=== PATIENT | female | born 1990 | race Caucasian/White ===

== ENCOUNTER → 2017-01-05 | Outpatient (CLI) | payer OTHER ==
[2017-01-05 16:44] LABS: BASO % 0.3 %; BASO ABS # 0.03 K/uL (0-0.2); COMPLETE YES; HEMATOCRIT 39.8 % (37-47); IG% 0.2 %; LYMPH % 21.2 %; LYMPH ABS # 1.85 K/uL (1.2-3.4); MEAN CELL VOLUME 84.3 fL (80-100); MEAN CORPUSCULAR HEMOGLOBIN 26.9 pg (25-34); MEAN CORPUSCULAR HGB CONC 31.9 g/dl (32-36); MEAN PLATELET VOLUME 11.4 fL (7.4-10.4); MONO % 11.3 %; PLATELET COUNT 334 K/uL (130-400); RED BLOOD COUNT 4.72 M/uL (4.2-5.4); WHITE BLOOD COUNT 8.71 K/uL (4.8-10.8)
[2017-01-05 17:22] LABS: ALT/SGPT 26 U/L (12-78); AST/SGOT 16 U/L (15-37); BLOOD UREA NITROGEN 8 mg/dl (7-18); BUN/CREATININE RATIO 10.7 (10-20); CALCIUM 8.8 mg/dl (8.5-10.1); CARBON DIOXIDE 24 mmol/L (21-32); CHLORIDE 105 mmol/L (98-107); CREATININE 0.79 mg/dl (0.60-1.20); GLUCOSE 83 mg/dl (70-99); POTASSIUM 3.8 mmol/L (3.5-5.1); SODIUM 138 mmol/L (136-145)
[2017-01-05 17:34] LABS: ALB/GLOB RATIO 0.8 (0.9-2); ALKALINE PHOSPHATASE 88 U/L (45-117)
[2017-01-06 13:19] LABS: ESTIMATED AVERAGE GLUCOSE 108 mg/dl; HA1C FLAG Normal (Normal)
== END | disposition home or self-care (01) ==
LOC: C.LABBC 15:28
PROVIDERS: ATTEND Nurse Practitioner Adult Health
DX: L68.0 Hirsutism (principal); N92.6 Irregular menstruation, unspecified; E66.9 Obesity, unspecified; Z32.01 Encounter for pregnancy test, result positive

== ENCOUNTER → 2017-01-05 | Outpatient (CLI) | payer OTHER | END | disposition home or self-care (01) | LOC: C.PAPS 07:41 | PROVIDERS: ATTEND Nurse Practitioner Adult Health | DX: Z12.4 Encounter for screening for malignant neoplasm of cervix (principal) ==

== ENCOUNTER → 2017-01-07 | Outpatient (CLI) | payer OTHER | END | disposition home or self-care (01) | LOC: C.LAB 15:30 | PROVIDERS: ATTEND Nurse Practitioner Adult Health | DX: Z34.90 Encounter for supervision of normal pregnancy, unspecified, unspecified trimester (principal); Z3A.00 Weeks of gestation of pregnancy not specified ==

== ENCOUNTER → 2017-02-24 | Outpatient (CLI) | payer OTHER ==
[2017-02-24 13:10] LABS: BASO % 0.2 %; BASO ABS # 0.02 K/uL (0-0.2); COMPLETE YES; EOS % 0.9 %; HEMATOCRIT 40.6 % (37-47); IG% 0.2 %; LYMPH % 24.2 %; LYMPH ABS # 2.09 K/uL (1.2-3.4); MEAN CELL VOLUME 83.5 fL (80-100); MEAN CORPUSCULAR HEMOGLOBIN 27.8 pg (25-34); MEAN CORPUSCULAR HGB CONC 33.3 g/dl (32-36); MEAN PLATELET VOLUME 11.4 fL (7.4-10.4); NEUT % 66.5 %; PLATELET COUNT 318 K/uL (130-400); RED BLOOD COUNT 4.86 M/uL (4.2-5.4); WHITE BLOOD COUNT 8.63 K/uL (4.8-10.8)
[2017-02-24 13:48] LABS: CALCULATED INSULIN SENSITIVITY 0.321; GLUCOSE LOG 1.9243; INSULIN FASTING 15.4 mU/L (3-25); INSULIN LOG 1.1875; THYROID STIMULATING HORMONE 2.24 uIu/ml (0.300-4.500)
== END | disposition home or self-care (01) ==
LOC: C.LAB1850 11:26
PROVIDERS: ATTEND Obstetrics & Gynecology
DX: E28.2 Polycystic ovarian syndrome (principal)

== ENCOUNTER → 2017-03-02 | Outpatient (CLI) | payer OTHER ==
[2017-03-02 19:03] LABS: ALT/SGPT 29 U/L (12-78); BLOOD UREA NITROGEN 11 mg/dl (7-18); BUN/CREATININE RATIO 13.4 (10-20); CALCIUM 9.1 mg/dl (8.5-10.1); CARBON DIOXIDE 30 mmol/L (21-32); CHLORIDE 102 mmol/L (98-107); CREATININE 0.82 mg/dl (0.60-1.20); GLUCOSE 80 mg/dl (70-99); POTASSIUM 3.6 mmol/L (3.5-5.1); SODIUM 135 mmol/L (136-145)
[2017-03-02 19:06] LABS: ALB/GLOB RATIO 0.8 (0.9-2); ALKALINE PHOSPHATASE 102 U/L (45-117); AST/SGOT 15 U/L (15-37)
== END | disposition home or self-care (01) ==
LOC: C.LAB 18:01
PROVIDERS: ATTEND Obstetrics & Gynecology
DX: E28.2 Polycystic ovarian syndrome (principal)

== ENCOUNTER → 2017-04-07 | Outpatient (CLI) | payer OTHER | END | disposition home or self-care (01) | LOC: C.LAB 17:56 | PROVIDERS: ATTEND Obstetrics & Gynecology | DX: Z32.01 Encounter for pregnancy test, result positive (principal) ==

== ENCOUNTER → 2017-04-10 | Outpatient (CLI) | payer OTHER | END | disposition home or self-care (01) | LOC: C.LAB 09:32 | PROVIDERS: ATTEND Obstetrics & Gynecology | DX: Z32.01 Encounter for pregnancy test, result positive (principal) ==

== ENCOUNTER → 2017-05-09 | Outpatient (CLI) | payer OTHER ==
[2017-05-09 10:06] LABS: BASO % 0.2 %; BASO ABS # 0.02 K/uL (0-0.2); EOS % 0.3 %; EOS ABS # 0.03 K/uL (0-0.5); HEMATOCRIT 38.8 % (37-47); HEMOGLOBIN 13.1 g/dL (12.0-16.0); IG# 0.02 K/uL (0.00-0.02); LYMPH % 19.9 %; LYMPH ABS # 1.98 K/uL (1.2-3.4); MEAN CELL VOLUME 80.8 fL (80-100); MEAN CORPUSCULAR HEMOGLOBIN 27.3 pg (25-34); MEAN CORPUSCULAR HGB CONC 33.8 g/dl (32-36); MEAN PLATELET VOLUME 10.5 fL (7.4-10.4); MONO % 7.2 %; MONO ABS # 0.72 K/uL (0.11-0.59); NEUT % 72.2 %; NEUT ABS # 7.18 K/uL (1.4-6.5); PLATELET COUNT 261 K/uL (130-400); RED CELL DISTRIBUTION WIDTH CV 15.5 % (11.5-14.5); RED CELL DISTRIBUTION WIDTH SD 45.5 fL (36.4-46.3); WHITE BLOOD COUNT 9.95 K/uL (4.8-10.8)
== END | disposition home or self-care (01) ==
LOC: C.LAB1850 08:59
PROVIDERS: ATTEND Obstetrics & Gynecology
DX: Z34.01 Encounter for supervision of normal first pregnancy, first trimester (principal)

== ENCOUNTER → 2017-06-30 | Outpatient (CLI) | payer OTHER | END | disposition home or self-care (01) | LOC: C.LAB1850 14:11 | PROVIDERS: ATTEND Obstetrics & Gynecology | DX: Z34.01 Encounter for supervision of normal first pregnancy, first trimester (principal); Z3A.00 Weeks of gestation of pregnancy not specified ==

== ENCOUNTER → 2017-11-17 | Outpatient (CLI) | payer OTHER | END | disposition home or self-care (01) | LOC: C.LABSPEC 15:50 | PROVIDERS: ATTEND Obstetrics & Gynecology | DX: Z34.03 Encounter for supervision of normal first pregnancy, third trimester (principal) ==

== ENCOUNTER 2021-01-18 03:00 | Observation (INO) ==
[2021-01-18] MEDS ORDERED: LACTATED RINGER'S 1,000 ML IV PRN (03:34)
[2021-01-18 04:00] LABS: Hematocrit (blood only) 35.2 % (37-47); Hemoglobin 11.9 g/dL (12.0-16.0); Mean Corpuscular Hemoglobin 28.7 pg (25-34); Mean Corpuscular Hgb Conc 33.8 g/dL (32-36); Mean Platelet Volume 12.6 fL (7.4-10.4); Platelet Count 238 K/uL (130-400); RDW Coefficient of Variation 13.7 % (11.5-14.5); RDW Standard Deviation 42.3 fL (36.4-46.3); Red Blood Count 4.14 M/uL (4.2-5.4)
[2021-01-18] MEDS ORDERED: AMPICILLIN 2,000 MG in SODIUM CHLOR 0.9% AD-VAN 100 ML IV SCH (04:00)
[2021-01-18] MEDS ORDERED: ERYTHROMYCIN 250 MG in SODIUM CHLORIDE 0.9% 250 ML IV SCH (04:00)
--- NOTE | 2021-01-18 04:02 | History & Physical Report ---
Date of Service January 18, 2021 Assessment & Plan (1) IUGR (intrauterine growth restriction) affecting care of mother: (2) Gestational diabetes: (3) Dichorionic diamniotic twin : (4) premature rupture of membranes (PPROM) delivered, current hospitalization: Plan: P PROM at 33 weeks 1 day EDC was based on last menstrual period and confirmed by first ultrasound by the physician in our group at that first visit Cervix 2 cm and thick Per guidelines I have started erythromycin and ampicillin discussed the need for transfer as we do not have an NICU the patient is Covid negative GBS swab is done results pending bedside ultrasound confirms 2 babies in breech position first baby in kannan breech position. There are no contractions seen in the monitor patient experiences only mild tightenings nothing beyond her normal baseline both heart rates are category 1 with accelerations Reviewed with suzanna Dr. [place] Recommend giving betamethasone recommend transfer to Dr. Houston recommended cervical check just before transfer she is aware patient has been checked already On recheck she was still 2 cm Discussed the baby's position of breech breech Admission and Anticipated Discharge Date Admission Date: January 18, 2021 History of Present Illness Primary Care Provider: NO PCP Patient presented to labor and delivery with spontaneous rupture of membranes at 33 weeks and 1 day it should be noted is complicated by 2 issues #1 she has a twin this is a dichorionic diamnionic . Additionally both babies are small in the 6 and 8 percentile for growth both babies are also breech on recent imaging. Patient report reported a sudden rupture of membranes at 2 AM and continue to leak while coming in she was grossly ruptured nitrazine positive she does not feel contractions she had a little bit of blood-tinged bleeding at the time of rupture but no bleeding since As mentioned is a twin with concerns over growth restriction. She has gestational diabetes as well she has not been vaccinated against COVID-19 howeve r she did experience COVID-19 in March 2020. She has 1 previous and normal vaginal delivery uncomplicated she is otherwise healthy Allergies Allergy/AdvReac Type Severity Reaction Status Date / Time No Known Allergies Allergy Verified 01/18/21 03:27 Home Medications Medication Instructions Recorded Confirmed Type vit no.133-ferrous 1 tab PO DAILY 08/29/20 01/18/21 History fumarate 28 mg-folic acid 800 mcg tablet () aspirin 81 mg tablet,delayed 81 mg PO DAILY 12/05/20 01/18/21 History release (Aspirin Low Dose) acetone (urine) test (Ketone Urine #50 ea 01/08/21 01/14/21 Rx Test) blood sugar diagnostic (OneTouch #150 ea 01/08/21 01/14/21 Rx Verio test strips) blood-glucose meter (OneTouch #1 ea 01/08/21 01/14/21 Rx Verio Flex meter) lancets 33 gauge (OneTouch Delica #150 ea 01/08/21 01/14/21 Rx Plus Lancet) Patient History Medical History (Updated 01/18/21 @ 03:59 by Keven Chatterjee MD, FACOG) Angular cheilitis PCOS (polycystic ovarian syndrome) Surgical History No history of previous surgery Family History Grandfather (Paternal) Lymph node cancer Father Hypertension Bladder cancer Grandmother Breast cancer Uncle Myocardial infarction Family/Other Myocardial infarction cousin Denies family history of Ovarian cancer Prostate cancer Colorectal cancer Social History Smoking Status: Never smoker Second Hand Exposure: No; Hx Alcohol Use: No Hx Substance Use: No Preferred Language: Iranian Communication Ability: Effective Machine Woodworking Sander Required: No Beliefs That Will Affect Care: None marital status: marital status details: Robert (36) [phone] Current Living Situation: Spouse Current Living Situation Comment: lives with spouse and son, 1 dog 1 cat, spouse to change litter. 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
[2021-01-18] MEDS ORDERED: BETAMETH SOD PHOS/ACETATE IA 6 MG/ML IM STA (04:19)
[2021-01-18] MEDS ORDERED: BETAMETH SOD PHOS/ACETATE IA 6 MG/ML ONE (04:25)
== END 2021-01-18 06:05 | disposition short-term general hospital (02) ==
LOC: OPB 03:00 → 4S1 03:02 → INTOOBSV 03:34